=== PATIENT | female | born 1955 | race Caucasian/White ===

== ENCOUNTER 2019-08-12 05:56 | Emergency (ER) | payer BC ==
[~2019-08-12] VITALS: Ht 162.6 cm; Wt 48.5 kg
[2019-08-12] MEDS ORDERED: ketorolac trometh inj. 60 MG/2 ML VIAL IM ONE (06:30)
[2019-08-12 07:14] VITALS: BP 123/73
[2019-08-12] MEDS ORDERED: diazepam 5mg tablet PO ONE (07:35)
[2019-08-12] MEDS ORDERED: ondansetron/PF 4mg/2ml inj IV ONE (07:35)
--- NOTE | 2019-08-12 07:36 | NUR ---
discussed pt's c/o of nausea and increased anxiety w/ edmd sandrita; new orders received.
[2019-08-12] MEDS ORDERED: ondansetron 4mg rapidly disintigrating tab PO ONE (07:40)
== END 2019-08-12 08:00 | disposition home or self-care (01) ==
LOC: ER 05:57
DX: G44.209 Tension-type headache, unspecified, not intractable (principal); R11.0 Nausea; Z88.0 Allergy status to penicillin
CPT/HCPCS: 70450; 96372; 99284; J1885